=== PATIENT | male | born 1940 | race Caucasian/White ===

== ENCOUNTER 2019-10-20 12:18 | Inpatient (IN) | payer MEDICARE, BC ==
[~2019-10-20 12:18] MED LIST: CELEXA20 MG PO; DEPAKOTE250 MG PO; DEPAKOTE500 MG PO; DIOVAN320 MG PO; ELIQUIS2.5 MG PO; K-TAB10 MEQ PO; MYSOLINE250 MG PO; NORVASC5 MG PO; PROSCAR5 MG PO; TENORMIN50 MG PO; ZANTAC300 MG PO
[2019-10-20 15:02] VITALS: BP 159/73; BMI 32.0
[2019-10-20] MEDS ORDERED: BENADRYL25 MG PO (15:42)
[2019-10-20] MEDS ORDERED: FLUTICASONE PRO16 GM NASAL (15:44)
[2019-10-20] MEDS ORDERED: FUROSEMIDE40 MG PO (15:45)
[2019-10-20] MEDS ORDERED: ELIQUIS5 MG PO (15:46)
[2019-10-20] MEDS ORDERED: METOPROLOL TART25 MG PO (15:47)
[2019-10-20] MEDS ORDERED: RISAMINE OINTM113 GM TP (15:49)
[2019-10-20] MEDS ORDERED: CIALIS10 MG PO (15:51)
--- NOTE | 2019-10-20 15:51 | NUR ---
PT ADMITTED TO DR. LOAIZA FROM THE [facility] AT [place] RELATED TO ALTER MENTAL STATUS. PT REPORTED TO HAVE INAPPROPRIATE BEHAVIORS TOWARD FEMALE RESIDENTS. PT JING AND SON GE LOBATO GAVE CONSENT FOR ADMISSION AND CODE STATUS ALONG WITH PTS CODE STATUS AND PAPERWORK. PT IS CALM AND COOPERATIVE AT THIS TIME. PT IS ALERT AND ORIENTED TO PERSON, PLACE AND TIME. PT AMBULATES WITH WALKER. WILL CONT TO MONITOR FOR SAFETY.
[2019-10-20] MEDS ORDERED: TYLENOL ARTHRI650 MG PO (15:52)
[2019-10-20] MEDS ORDERED: COLACE100 MG PO (15:52)
[2019-10-20] MEDS ORDERED: XANAX1 MG PO (15:53)
[2019-10-20] MEDS ORDERED: ARISTOCORT 0.5%15 GM TOPICAL (15:56)
[2019-10-20 16:12] VITALS: BP 159/73
[2019-10-20 17:33] LABS: BILIRUBIN NEGATIVE (NEGATIVE); GLUCOSE NEGATIVE (NEGATIVE); KETONE NEGATIVE (NEGATIVE); NITRITE NEGATIVE (NEGATIVE); UROBILINOGEN NORMAL (NORMAL); WHITE CELLS - URINE 0-5 /hpf (NEGATIVE)
[2019-10-20 17:34] LABS: RED CELLS - URINE OCC /hpf (0-5)
--- NOTE | 2019-10-20 19:43 | NUR ---
RECEIVED IN DAYROOM. SITTING IN A CHAIR WITH PEERS AT HIS SIDE. CALM AND COOPERATIVE WITH CARE NAD ASSESSMENT. NO SIGNS OF SEXUALLY INAPPROPRIATE BEHAVIOR. REDIRECT AND REORIENT NEEDED. CONTINUES TO SIT CALMLY IN DAYROOM. CONTINUE PLAN OF CARE.
[2019-10-20 20:24] VITALS: BP 154/76
[2019-10-21 07:36] LABS: BASOPHILS 0.1 % (0-2); EOSINOPHILS 1.6 % (0-7); HEMATOCRIT 49.8 % (42.0-54.0); HEMOGLOBIN 16.3 g/dL (13.5-17.5); IMMATURE GRANULOCYTES 0.1 % (0-5); LYMPHOCYTES 17.7 % (15-50); MCH 31.1 pg (26.0-34.0); MCHC 32.7 g/dL (31.0-37.0); MEAN PLATELET VOLUME 10.4 fL (7.4-10.4); MONOCYTES 8.2 % (2-11); NEUTROPHILS 72.3 % (40-80); PLATELET COUNT 192 10x3/uL (130-400); RBC 5.24 10x6/uL (4.20-6.10)
[2019-10-21 08:00] VITALS: BP 145/81
[2019-10-21 08:21] LABS: ALKALINE PHOSPHATASE 137 U/L (30-120); ALT (SGPT) 31 U/L (10-68); BILIRUBIN - TOTAL 0.54 mg/dL (0.2-1.3); CALC OSMOLALITY 274 mosm/kg (275-300); CALCIUM 8.9 mg/dL (8.5-10.1); CARBON DIOXIDE 27.5 mmol/L (21.0-32.0); CHLORIDE - SERUM 100 mmol/L (98-107); CHOL - HDL RATIO 3.1 ratio (2.3-4.9); CHOLESTEROL, TOTAL 190 mg/dL (0-200); CREATININE - SERUM 0.8 mg/dL (0.6-1.3); GLUCOSE 85 mg/dL (74-106); HDL CHOLESTEROL 61 mg/dL (32-96); LDL CHOLESTEROL 117 mg/dL (0-100); LDL-HDL RATIO 1.9 ratio (1.5-3.5); POTASSIUM - SERUM 3.8 mmol/L (3.5-5.1); PROTEIN - SERUM 7.6 g/dL (6.4-8.2); SODIUM 137 mmol/L (136-145); TRIGLYCERIDE 61 mg/dL (30-200); UREA NITROGEN 17 mg/dL (7-18); eGFR NON AFRICAN AMERICAN > 90 mL/min (90-120)
[2019-10-21 13:25] VITALS: Wt 116.6 kg
[2019-10-21 20:06] VITALS: BP 176/82
--- NOTE | 2019-10-21 23:54 | NUR ---
B.) PT IS ALERT AND ORIENTED X4. HE IS RECEIVED IN THE DAYROOM. HE USES A WALKER TO ASSIST WITH AMBUALTION. HE IS ABLE TO MAKE HIS NEEDS KNOWN. NO SEXUAL INAPPROPRIATE BEHAVIORS NOTED THIS SHIFT. PT IS SELF ISOLATING AT TIMES. I.) PROVIDED PM MEDICATIONS PRESCRIBED. REDIRECT IF NEEDED. R.) COMPLIANT WITH ALL MEDICATIONS. EASY TO REDIRECT. P.) WILL CONTINUE TO MONITOR.
--- NOTE | 2019-10-22 08:00 | NUR ---
RECEIVED IN HALLAY OUTSIDE OF NURSES STATION. CALM AND COOPERATIVE WITH CARE AND ASSESSMENT. NO SEXUALLY INAPPROPRIATE BEHAVIOR. REDIRECT AND REORIENT NEEDED. EATING BREAKFAST AT THIS TIME. CONTINUE PLAN OF CARE.
[2019-10-22 10:43] VITALS: BP 170/80
--- NOTE | 2019-10-22 12:00 | NUR ---
PATIENT COMPLAINS OF HEADACHE RATE 10/10. TYLENOL GIVEN.
--- NOTE | 2019-10-22 14:00 | NUR ---
PT BLOOD PRESSURE OUT OF NORMAL LIMITS. DR. TEE NOTIFIED. N/O: CATAPRES 0.2 MG ONCE NOW, LOSPRESSOR INCREASED TO 50 MG BID. WILL GIVE NOW DOSE AND RECHECK BLOOD PRESSURE.
--- NOTE | 2019-10-22 14:12 | NUR ---
ONCE DOSE OF CATAPRES 0.2 MG GIVEN PER ORDER. WILL ASSESS FOR EFFECTIVENESS.
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
--- NOTE | 2019-10-22 15:57 | NUR ---
PT CONTS TO C/O OF HEADACHE, NAUSEA AND NOT FEELING WELL. BLOOD PRESSURE AT THIS TIME: 170/90. PT IF FLUSHED IN THE FACE AND C/O OF NAUSEA. NO VOMITING NOTED. WILL CONT TO MONITOR.
--- NOTE | 2019-10-22 16:56 | NUR ---
PT BLOOD PRESSURE AT THIS TIME: 111/78. HE STATED HE FELT BETTER. HE FELL ASLEEP.
[2019-10-22 20:00] VITALS: BP 155/88
--- NOTE | 2019-10-22 23:04 | NUR ---
B)RECEIVED PATIENT SITTING IN THE DAYROOM. ALERT AND ORIENTED X3. POOR INSIGHT INTO THE REASON FOR HOSPITALIZATION RELATING "MY MEMORY. THEY ARE SUPPOSE TO BE CHECKING OUT MY MEMORY." I)ADMINSITER MEDS AND MONITOR COMPLIANCE. MONITOR FOR INAPPROPRIATE BEHAVIOR AND REDIRECT NEEDED. R)MED COMPLIANT. PT IS CALM AND COOPERATIVE. NO INAPPROPRIATE BEHAVIOR NOTED AT THIS TIME. P)CONTINUE POC AND PROVIDE SAFE ENVIRONMENT.
--- NOTE | 2019-10-23 11:58 | NUR ---
The patient is awake and alert, he says he does not feel well. He is running a low grade temp 99.3 and his bp is running high. Checked it manually. He is eating and he is ambulating with a walker. He has poor insight into his situation. He has intermittant confusion. He has not shown any aggression today. Provide prescribed meds. The patient is compliant with meds. Continue POC.
--- NOTE | 2019-10-23 13:36 | NUR ---
Nutrition Follow-up: Ate 0-100% of meals yesterday. Noted pt has had c/o nausea and diarrhea. Diet: Regular PO intake: 81% avg x 6 meals Wt: 262# (10/20) Last BM: 10/21 No new labs Meds noted: Pepcid, Lasix, Imodium (PRN) -Encourage PO intake and honor food preferences. -Offer nutrition supplement if PO intake <50%. -Monitor wt. -RD following.
--- NOTE | 2019-10-23 13:47 | PN ---
PATIENT:SHIRA LOBATO MEDICAL RECORD: [id number] LOCATION:[facility] ADMISSION DATE: 10/20/19 PROGRESS NOTE DATE OF SERVICE: 10/22/2019 SUBJECTIVE: The patient's case was discussed with staff. He has no new complaint. OBJECTIVE: The patient is in good behavioral control with poor insight about his condition. He has not been sexually inappropriate in any way nor has he been otherwise inappropriate. He is taking antidepressant medicine which will be maintained. I anticipate he can be transitioned out of the hospital as soon as arrangements are made. TRANSINT:[id number] Voice Confirmation ID: [id number] DOCUMENT ID: [id number] DIOR LOAIZA MD at 1347 CC: [id number] DICTATION DATE: 10/22/19 1459 JET BLADE POLISHER: 10/22/192111 ADM IN [facility] [address] [place] [address]
[2019-10-23 14:49] VITALS: BP 178/90
[2019-10-23 20:00] VITALS: BP 164/76
--- NOTE | 2019-10-23 20:33 | NUR ---
PATIENT IS ORIENTED TO SELF, PLACE, TIME AND SITUATION. NO SEXUAL ADVANCES TOWARD ANYONE NOTICED. HE IS ANXIIOUS DUE TO THE NEW ADMISSION BEING HYPERVERBAL. CALMED HIM DOWN AND EXPLAINED TO HIM THAT HE IS VERY CONFUSED, HE IS STAYING TO HIMSELF. WILL FOLLOW POC
--- NOTE | 2019-10-24 08:07 | NUR ---
The patient is awake and alert, he says he is feeling better today. He is pleasant and does not look as nervous as yesterday. His blood pressure is 152/75 this am. Provide prescribed meds. The patient is compliant with meds. He ambulates with a rolling walker. Continue POC.
[2019-10-24 09:03] VITALS: BP 152/75
--- NOTE | 2019-10-24 12:44 | PN ---
PATIENT:SHIRA LOBATO MEDICAL RECORD: [id number] LOCATION:[facility] ADMISSION DATE: 10/20/19 PROGRESS NOTE DATE OF SERVICE: 10/23/2019 SUBJECTIVE: The patient's case was discussed with staff. He has no new complaint. OBJECTIVE: The patient is fully oriented, but does have some mild memory impairment. He is tolerating his antidepressant medicine well. He denies that he would seek to harm himself or others and has no predatory or sexually inappropriate behavior. ASSESSMENT: Major depression. PLAN: Current medicines have been reviewed and will be maintained. I would anticipate he can be transitioned out of the hospital as soon as placement is arranged. TRANSINT:[id number] Voice Confirmation ID: [id number] DOCUMENT ID: [id number] DIOR LOAIZA MD at 1244 CC: [id number] DICTATION DATE: 10/23/19 1434 AITCHBONE BREAKER: 10/23/19 2151 ADM IN [facility] [address] [place] [address]
[2019-10-24 20:00] VITALS: BP 158/92
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
[2019-10-25 09:33] VITALS: BP 167/93
--- NOTE | 2019-10-25 10:03 | PN ---
PATIENT:SHIRA LOBATO MEDICAL RECORD: [id number] LOCATION:[facility] ADMISSION DATE: 10/20/19 PROGRESS NOTE DATE OF SERVICE: 10/24/2019 SUBJECTIVE: The patient's case was discussed with staff. He has no new complaint. OBJECTIVE: The patient appears quite anxious and is wanting to be discharged. He understands that there is no place for him to go. He has been in good behavioral control. He has not been aggressive. ASSESSMENT: Major depression. PLAN: I am going to prescribe a benzodiazepine to assist the patient with his underlying anxiety. He will be monitored for clinical changes associated with its use. TRANSINT:[id number] Voice Confirmation ID: [id number] DOCUMENT ID: [id number] DIOR LOAIZA MD at 1003 CC: [id number] DICTATION DATE: 10/24/19 1413 CRITICAL CARE EDUCATOR: 10/24/19 1801 ADM IN [facility] [address] [id number]
--- NOTE | 2019-10-25 12:00 | NUR ---
RECEIVED IN HALLWAY OUTSIDE OF NURSES STATION. CALM AND COOPERATIVE WITH CARE AND ASSESSMENT. NO SEXUALLY INAPPROPRIATE BEHAVIOR. REDIRECT AND REORIENT NEEDED. EATING LUNCH AT THIS TIME. CONTINUE PLAN OF CARE.
[2019-10-25 20:00] VITALS: BP 136/76
--- NOTE | 2019-10-25 20:05 | NUR ---
RECEIVED IN DAYROOM. SITTING CALMLY DURTING EVENING GROUP. CALM AND COOPERATIVE WITH CARE AND ASSESSMENT. NO SIGNS OF SEXUALLY INAPPROPRIATE BEHAVIOR. REDIRECT AND REORIENT NEEDED. CONTINUES TO SIT CALMLY IN DAYROOM. CONTINUE PLAN OF CARE.
[2019-10-26 09:39] VITALS: BP 152/102
--- NOTE | 2019-10-26 12:00 | NUR ---
RECEIVED IN HALLWAY OUTSIDE OF NURSES STATION. CALM AND COOPERATIVE WITH CARE AND ASSESSMENT. NO SEXUALLY INAPPROPRATIE BEHAVIOR. PATIENT LOOKING FORWARD TO DISCHARGING TOMORROW. REDIRECT AND REORIENT NEEDED. EATING LUNCH AT THIS TIME. CONTINUE PLAN OF CARE.
--- NOTE | 2019-10-26 13:21 | PN ---
PATIENT:SHIRA LOBATO MEDICAL RECORD: [id number] LOCATION:[facility] ADMISSION DATE: 10/20/19 PROGRESS NOTE DATE OF SERVICE: 10/25/2019 SUBJECTIVE: The patient's case was discussed with staff. He has no new complaint. OBJECTIVE: The patient continues to be quite anxious. He is not showing any aggressive or sexually inappropriate behaviors. ASSESSMENT: Major depression. PLAN: The patient is not dangerous or suicidal. He can be discharged from the hospital as soon as housing and placement is arranged. TRANSINT:[id number] Voice Confirmation ID: [id number] DOCUMENT ID: [id number] DIOR LOAIZA MD at 1321 CC: [id number] DICTATION DATE: 10/25/19 1153 BI CONSULTANT: 10/25/[address] [facility] [address] [place] [address]
[2019-10-26] MEDS ORDERED: METOPROLOL TART50 MG PO (15:32)
[2019-10-26] MEDS ORDERED: LISINOPRIL40 MG PO (15:32)
[2019-10-26] MEDS ORDERED: FLOMAX0.4 MG PO (15:32)
[2019-10-26] MEDS ORDERED: PEPCID PO (15:33)
--- NOTE | 2019-10-26 19:34 | NUR ---
RECEIVED IN DAYROOM. SITTING IN A CHAIR WITH PEERS AT HIS SIDE. CALM AND COOPERATIVE WITH CARE AND ASSESSMENT. NO SIGNS OF SEXUALLY INAPPROPRIATE BEHAVIOR. REDIRECT AND REORIENT NEEDED. RESTING IN BED WITH EYES CLOSED AT THIS TIME. CONTINUE PLAN OF CARE.
[2019-10-26 19:49] VITALS: BP 128/72
[2019-10-27 08:09] VITALS: BP 160/87
--- NOTE | 2019-10-27 11:41 | NUR ---
MAURICIO SPOKE WITH PT'S SON, GE, ABOUT DISCHARGE PLANS TO [place]. GE VOICED UNDERSTANDING. PT WILL BE DISCHARGED AT 1330.
--- NOTE | 2019-10-27 13:18 | PN ---
PATIENT:SHIRA LOBATO MEDICAL RECORD: [id number] LOCATION:[facility] ADMISSION DATE: 10/20/19 PROGRESS NOTE DATE OF SERVICE: 10/26/2019 SUBJECTIVE: The patient's case was discussed with staff. He has no new complaint. OBJECTIVE: The patient is in good behavioral control. He has poor insight about his situation. He has no sexually inappropriate behavior. ASSESSMENT: Major depression. PLAN: The patient will be transitioned out of the hospital tomorrow. He is going to go to the [facility] [place]. TRANSINT:[id number] Voice Confirmation ID: [id number] DOCUMENT ID: [id number] DIOR LOAIZA MD at 1318 CC: [id number] DICTATION DATE: 10/26/19 1531 [facility] DIRECTOR: 10/26/19 2253 ADM IN [facility] [address] [place] [address]
--- NOTE | 2019-10-28 13:35 | PN ---
PATIENT:SHIRA LOBATO MEDICAL RECORD: [id number] LOCATION:[facility] ADMISSION DATE: 10/20/19 PROGRESS NOTE DATE OF SERVICE: 10/27/2019 SUBJECTIVE: The patient's case was discussed with staff. He has no new complaint. OBJECTIVE: The patient is in good behavioral control. He has a depressed mood, but no thoughts of harming himself or others. ASSESSMENT: Major depression. PLAN: The patient is going to be transitioned out of the hospital today. He is going to be moving to an assisted living center. His long-term prognosis is guarded. Followup is to be with his primary care physician. There has been no evidence of sexually inappropriate behavior since his admission. TRANSINT:[id number] Voice Confirmation ID: [id number] DOCUMENT ID: [id number] DIOR LOAIZA MD at 1335 CC: [id number] DICTATION DATE: 10/27/19 1526 AIRCRAFT ENGINE TECHNICIAN: 10/28/19 0006 DIS IN 10/27/[id number] [place] [address]
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
== END 2019-10-27 16:00 | disposition home or self-care (01) | DRG 57 ==
LOC: D.PSYCH 12:18
PROVIDERS: ADMIT Psychiatry & Neurology Psychiatry; ATTEND Psychiatry & Neurology Psychiatry
DX: I69.319 Unspecified symptoms and signs involving cognitive functions following cerebral infarction (principal); F01.51 Vascular dementia, unspecified severity, with behavioral disturbance; F32.9 Major depressive disorder, single episode, unspecified; G20 Parkinson's disease; I10 Essential (primary) hypertension; N40.0 Benign prostatic hyperplasia without lower urinary tract symptoms; J30.9 Allergic rhinitis, unspecified; K21.9 Gastro-esophageal reflux disease without esophagitis

== ENCOUNTER 2019-11-02 11:43 | Emergency (ER) | payer MEDICARE, BC ==
[~2019-11-02] VITALS: Ht 193 cm; Wt 119.1 kg
[~2019-11-02 11:43] MED LIST changes: +ARISTOCORT 0.5%15 GM TOPICAL; +BENADRYL25 MG PO; +CIALIS10 MG PO; +COLACE100 MG PO; +ELIQUIS5 MG PO; +FLOMAX0.4 MG PO; +FLUTICASONE PRO16 GM NASAL; +FUROSEMIDE40 MG PO; +LISINOPRIL40 MG PO; +METOPROLOL TART25 MG PO; +METOPROLOL TART50 MG PO; +PEPCID PO; +RISAMINE OINTM113 GM TP; +TYLENOL ARTHRI650 MG PO; +XANAX1 MG PO
[2019-11-02 11:44] VITALS: Ht 193 cm; Wt 119.1 kg
[2019-11-02 12:13] LABS: BASOPHILS 0.2 % (0-2); EOSINOPHILS 0.7 % (0-7); HEMATOCRIT 52.5 % (42.0-54.0); HEMOGLOBIN 17.7 g/dL (13.5-17.5); IMMATURE GRANULOCYTES 0.2 % (0-5); LYMPHOCYTES 14.3 % (15-50); MCH 31.3 pg (26.0-34.0); MCHC 33.7 g/dL (31.0-37.0); MCV 92.8 fL (80.0-100.0); MEAN PLATELET VOLUME 9.5 fL (7.4-10.4); MONOCYTES 11.3 % (2-11); NEUTROPHILS 73.3 % (40-80); PLATELET COUNT 223 10x3/uL (130-400); RBC 5.66 10x6/uL (4.20-6.10); RDW 13.9 % (11.5-14.5); WBC 8.9 10x3/uL (4.8-10.8)
[2019-11-02 12:22] LABS: CALC OSMOLALITY 276 mosm/kg (275-300); CALCIUM 9.5 mg/dL (8.5-10.1); CARBON DIOXIDE 28.8 mmol/L (21.0-32.0); CHLORIDE - SERUM 101 mmol/L (98-107); GLUCOSE 99 mg/dL (74-106); POTASSIUM - SERUM 4.2 mmol/L (3.5-5.1); SODIUM 137 mmol/L (136-145); UREA NITROGEN 22 mg/dL (7-18); eGFR NON AFRICAN AMERICAN 76 mL/min (90-120)
[2019-11-02 12:27] LABS: APTT 37.8 SECONDS (22.8-39.4); INR 1.2 (0.85-1.17); PROTIME 15.2 SECONDS (11.6-15.0)
[2019-11-02 12:39] LABS: ALBUMIN 3.8 g/dL (3.4-5.0); ALKALINE PHOSPHATASE 131 U/L (30-120); ALT (SGPT) 38 U/L (10-68); BILIRUBIN - TOTAL 0.49 mg/dL (0.2-1.3); CKMB 4.5 U/L (0.0-3.6); CREATINE KINASE 134 UL (21-232); MAGNESIUM - SERUM 2.1 mg/dL (1.8-2.4); PROTEIN - SERUM 8.2 g/dL (6.4-8.2); TROPONIN-I 0.034 ng/mL (0.000-0.060)
[2019-11-02 15:06] VITALS: BP 160/90
== END 2019-11-02 15:07 | disposition home or self-care (01) ==
LOC: D.ER 11:43
PROVIDERS: Family Medicine
DX: I48.91 Unspecified atrial fibrillation (principal); I10 Essential (primary) hypertension; Z86.73 Personal history of transient ischemic attack (TIA), and cerebral infarction without residual deficits; G20 Parkinson's disease; K21.9 Gastro-esophageal reflux disease without esophagitis; R61 Generalized hyperhidrosis

== ENCOUNTER → 2020-01-14 13:28 | Outpatient (CLI) | payer MEDICARE, BC ==
[2019-11-02 11:44] VITALS: BMI 31.9
[2020-01-14 14:30] LABS: BASOPHILS 0.2 % (0-2); EOSINOPHILS 1.8 % (0-7); HEMOGLOBIN 15.6 g/dL (13.5-17.5); IMMATURE GRANULOCYTES 0.2 % (0-5); LYMPHOCYTES 20.4 % (15-50); MCH 31.3 pg (26.0-34.0); MCHC 33.2 g/dL (31.0-37.0); MCV 94.4 fL (80.0-100.0); MONOCYTES 7.3 % (2-11); NEUTROPHILS 70.1 % (40-80); PLATELET COUNT 203 10x3/uL (130-400); RBC 4.98 10x6/uL (4.20-6.10); RDW 14.5 % (11.5-14.5); WBC 6.3 10x3/uL (4.8-10.8)
[2020-01-14 15:41] LABS: ALBUMIN 3.6 g/dL (3.4-5.0); ALKALINE PHOSPHATASE 120 U/L (30-120); ALT (SGPT) 20 U/L (10-68); BILIRUBIN - TOTAL 0.43 mg/dL (0.2-1.3); CALC OSMOLALITY 277 mosm/kg (275-300); CARBON DIOXIDE 32.8 mmol/L (21.0-32.0); CHLORIDE - SERUM 101 mmol/L (98-107); GLUCOSE 87 mg/dL (74-106); PHENOBARBITAL 11.4 ug/mL (15.0-40.0); SODIUM 139 mmol/L (136-145); UREA NITROGEN 16 mg/dL (7-18); eGFR NON AFRICAN AMERICAN 76 mL/min (90-120)
[2020-01-18 09:09] LABS: PRIMIDONE 18.7 ug/mL (5.0-12.0)
== END | disposition home or self-care (01) ==
LOC: D.LAB 13:28
PROVIDERS: ATTEND Psychiatry & Neurology Neurology
DX: G25.0 Essential tremor (principal)

== ENCOUNTER 2020-02-19 08:28 | Emergency (ER) | payer MEDICARE, BC ==
[~2020-02-19] VITALS: Ht 193 cm; Wt 113.2 kg
[2020-02-19 08:38] VITALS: Ht 193 cm; Wt 113.2 kg
[2020-02-19 09:02] LABS: BASOPHILS 0.5 % (0-2); EOSINOPHILS 2.1 % (0-7); IMMATURE GRANULOCYTES 0.2 % (0-5); MCH 31.6 pg (26.0-34.0); MCHC 33.3 g/dL (31.0-37.0); MCV 94.7 fL (80.0-100.0); MEAN PLATELET VOLUME 9.8 fL (7.4-10.4); MONOCYTES 7.8 % (2-11); NEUTROPHILS 72.4 % (40-80); PLATELET COUNT 170 10x3/uL (130-400); RBC 4.75 10x6/uL (4.20-6.10); RDW 14.3 % (11.5-14.5); WBC 5.8 10x3/uL (4.8-10.8)
[2020-02-19 09:09] LABS: CALC OSMOLALITY 275 mosm/kg (275-300); CALCIUM 8.9 mg/dL (8.5-10.1); CARBON DIOXIDE 29.3 mmol/L (21.0-32.0); CHLORIDE - SERUM 101 mmol/L (98-107); CREATININE - SERUM 0.9 mg/dL (0.6-1.3); POTASSIUM - SERUM 3.9 mmol/L (3.5-5.1); SODIUM 137 mmol/L (136-145); UREA NITROGEN 12 mg/dL (7-18); eGFR NON AFRICAN AMERICAN 86 mL/min (90-120)
[2020-02-19 09:10] LABS: GLUCOSE 135 mg/dL (74-106)
[2020-02-19 09:14] LABS: ALBUMIN 3.5 g/dL (3.4-5.0); ALKALINE PHOSPHATASE 112 U/L (30-120); ALT (SGPT) 19 U/L (10-68); BILIRUBIN - TOTAL 0.51 mg/dL (0.2-1.3); PROTEIN - SERUM 7.3 g/dL (6.4-8.2)
[2020-02-19 10:30] VITALS: BP 115/72
[2020-02-19 12:46] LABS: BACTERIA FEW /HPF (NONE SEEN); BILIRUBIN NEGATIVE (NEGATIVE); EPITHELIAL CELLS RARE /hpf (0-5); KETONE NEGATIVE (NEGATIVE); NITRITE NEGATIVE (NEGATIVE); UROBILINOGEN NORMAL mg/dL (< 2); WHITE CELLS - URINE OCC /HPF (0-1)
[2020-02-19] MEDS ORDERED: NORFLEX100 MG PO (13:07)
== END 2020-02-19 13:17 | disposition home or self-care (01) ==
LOC: D.ER 08:28
PROVIDERS: Family Medicine
DX: M51.36 Other intervertebral disc degeneration, lumbar region (principal); M51.37 Other intervertebral disc degeneration, lumbosacral region; M54.5 Low back pain; I10 Essential (primary) hypertension; Z86.73 Personal history of transient ischemic attack (TIA), and cerebral infarction without residual deficits; G20 Parkinson's disease; K21.9 Gastro-esophageal reflux disease without esophagitis

== ENCOUNTER 2020-08-23 13:53 | Emergency (ER) | payer MEDICARE, BC ==
[~2020-08-23] VITALS: Ht 193 cm; Wt 100.0 kg
[~2020-08-23 13:53] MED LIST changes: +HYDROCODON-ACE1 EA10 PO; +K-DUR20 MEQ PO; +LASIX40 MG PO; +METHOCARBAMOL500 MG PO; +MIRALAX17 GM PO; +NORFLEX100 MG PO; +VOLTAREN100 GM TOPICAL; +ZYRTEC10 MG PO
[2020-08-23 13:58] VITALS: Ht 193 cm; Wt 100.0 kg
[2020-08-23 15:21] LABS: BASOPHILS 0.4 % (0-2); EOSINOPHILS 2.1 % (0-7); HEMATOCRIT 45.9 % (42.0-54.0); HEMOGLOBIN 15.6 g/dL (13.5-17.5); IMMATURE GRANULOCYTES 0.2 % (0-5); LYMPHOCYTES 21.2 % (15-50); MCH 31.3 pg (26.0-34.0); MCV 92.2 fL (80.0-100.0); MEAN PLATELET VOLUME 9.1 fL (7.4-10.4); MONOCYTES 8.7 % (2-11); NEUTROPHIL ABS# 3.82 10x3/uL (1.78-5.38); NEUTROPHILS 67.4 % (40-80); RBC 4.98 10x6/uL (4.20-6.10); RDW 13.8 % (11.5-14.5); WBC 5.7 10x3/uL (4.8-10.8)
[2020-08-23 15:23] LABS: PLATELET COUNT 157 10x3/uL (130-400)
[2020-08-23 15:29] LABS: CALC OSMOLALITY 267 mosm/kg (275-300); CALCIUM 8.5 mg/dL (8.5-10.1); CARBON DIOXIDE 30.2 mmol/L (21.0-32.0); CHLORIDE - SERUM 98 mmol/L (98-107); GLUCOSE 96 mg/dL (74-106); INR 1.12 (0.85-1.17); POTASSIUM - SERUM 4.1 mmol/L (3.5-5.1); PROTIME 13.4 SECONDS (11.6-15.0); SODIUM 132 mmol/L (136-145); UREA NITROGEN 20 mg/dL (7-18); eGFR NON AFRICAN AMERICAN 76 mL/min (90-120)
[2020-08-23 15:30] LABS: APTT 34.2 SECONDS (22.8-39.4)
[2020-08-23 15:36] LABS: ALBUMIN 3.7 g/dL (3.4-5.0); ALKALINE PHOSPHATASE 95 U/L (30-120); ALT (SGPT) 21 U/L (10-68); PROTEIN - SERUM 7.3 g/dL (6.4-8.2)
[2020-08-23 18:33] VITALS: BP 174/97
== END 2020-08-23 17:50 ==
LOC: D.ER 13:53
PROVIDERS: Emergency Medicine
DX: R51.9 Headache, unspecified (principal); I10 Essential (primary) hypertension; E87.1 Hypo-osmolality and hyponatremia

== ENCOUNTER → 2020-10-25 12:35 | Outpatient (CLI) | payer MEDICARE, BC ==
[2020-08-23 13:58] VITALS: BMI 26.8
== END | disposition home or self-care (01) ==
LOC: D.US 10-24 08:00
PROVIDERS: ATTEND Internal Medicine Cardiovascular Disease
DX: I10 Essential (primary) hypertension (principal); I70.1 Atherosclerosis of renal artery

== ENCOUNTER 2020-12-01 15:24 | Emergency (ER) | payer MEDICARE, BC ==
[~2020-12-01] VITALS: Ht 193 cm; Wt 120.5 kg
[2020-12-01 15:31] VITALS: Ht 193 cm; Wt 120.5 kg
[2020-12-01 19:39] VITALS: BP 167/101
== END 2020-12-01 20:49 | disposition left against medical advice (07) ==
LOC: D.ER 15:24
DX: R07.9 Chest pain, unspecified (principal); R91.8 Other nonspecific abnormal finding of lung field; Z86.73 Personal history of transient ischemic attack (TIA), and cerebral infarction without residual deficits; Z79.01 Long term (current) use of anticoagulants; R07.81 Pleurodynia